=== PATIENT | male | born 1985 | race African-American/Black ===

== ENCOUNTER 2017-02-15 14:33 | Inpatient (IN) | payer OTHER ==
[2017-02-15 18:00] VITALS: BMI 22.1
--- NOTE | 2017-02-15 19:36 | HP ---
COWS - Scale Resting Pulse: 1= [place] 81-100 Sweatin= Chills/Flushing Restless Observation: 1= Difficult to Sit Still Pupil Size: 0= Normal to Room Light Bone or Joint Aches: 2= Severe Diffuse Aches Runny Nose/ Eye Tearin= Runny Nose/Eyes GI Upset > 30mins: 1= Stomach Cramp Tremor Observation: 2= Slight Tremor Visible Yawning Observation: 1= 1-2x During Session Anxiety or Irritability: 2=Irritable/Anxious Goose Flesh Skin: 0=Smooth Skin COWS Score: 13 CIWA Score - CIWA Score Nausea/Vomitin-No Nausea/No Vomiting Muscle Tremors: 4-Moderate,w/Arms Extend Anxiety: 4-Mod. Anxious/Guarded Agitation: 4-Moderately Restless Paroxysmal Sweats: 1-Minimal Palms Moist Orientation: 1-Uncertain about Date Tacttile Disturbances: 0-None Auditory Disturbances: 0-None Visual Disturbances: 0-None Headache: 0-None Present CIWA-Ar Total Score: 14 Admission ROS S - HPI Chief Complaint: withdrawal sx Allergies/Adverse Reactions: Allergies Allergy/AdvReac Type Severity Reaction Status Date / Time No Known Allergies Allergy Verified 02/15/17 19:32 History of Present Illness: 32 years old male with long history of alcohol opiate klonopin nicotine dependence has history of blood clots removed 2010, both legs is admitted to detox Exam Limitations: No Limitations - Ebola screening Have you traveled outside of the country in the last 21 days: No (N) Have you had contact with anyone from an Ebola affected area: No Have you been sick,other than usual withdrawal symptoms: No Do you have a fever: No - Review of Systems Constitutional: Loss of Appetite, Unintentional Wgt. Loss EENT: reports: No Symptoms Reported Respiratory: reports: No Symptoms reported Cardiac: reports: No Symptoms Reported GI: reports: Poor Appetite, Poor Fluid Intake, Abdominal cramping : reports: No Symptoms Reported Musculoskeletal: reports: Back Pain, Joint Pain, Muscle Pain, Neck Pain Integumentary: reports: No Symptoms Reported Neuro: reports: Tremors Endocrine: reports: No Symptoms Reported Hematology: reports: No Symptoms Reported Psychiatric: reports: Judgement Intact, Mood/Affect Appropiate Other Systems: Reviewed and Negative Patient History - Patient Medical History Hx Anemia: No Hx Asthma: No Hx Chronic Obstructive Pulmonary Disease (COPD): No Hx Cancer: No Hx Cardiac Disorders: No Hx Congestive Heart Failure: No Hx Hypertension: No Hx Hypercholesterolemia: No Hx Pacemaker: No HX Cerebrovascular Accident: No Hx Seizures: No Hx Dementia: No Hx Diabetes: No Hx Gastrointestinal Disorders: No Hx Liver Disease: No Hx Genitourinary Disorders: No Hx Sexually Transmitted Disorders: No Hx Renal Disease (ESRD): No Hx Thyroid Disease: No Hx Human Immunodeficiency Virus (HIV): No Hx Hepatitis C: No Hx Depression: No Hx Suicide Attempt: No Hx Bipolar Disorder: No Hx Schizophrenia: No - Patient Surgical History Past Surgical History: Yes Hx Neurologic Surgery: No Hx Cataract Extraction: No Hx Cardiac Surgery: No Hx Lung Surgery: No Hx Breast Surgery: No Hx Breast Biopsy: No Hx Abdominal Surgery: No Hx Appendectomy: No Hx Cholecystectomy: No Hx Genitourinary Surgery: No Hx Orthopedic Surgery: Yes (blood clots removed both legs 2010) Anesthesia Reaction: No - PPD History Previous Implant?: Yes Documented Results: Negative w/o proof Implanted On Prior [facility] Admission?: No PPD to be Administered?: Yes - Smoking Cessation Smoking history: Current every day smoker Have you smoked in the past 12 months: Yes Aproximately how many cigarettes per day: 4 Cigars Per Day: 0 Hx Chewing Tobacco Use: No Initiated information on smoking cessation: Yes 'Breaking Loose' booklet given: 02/15/17 - Substance & Tx. History Hx Alcohol Use: Yes Hx Substance Use: Yes Substance Use Type: Alcohol, Cocaine, Opiates, Tranquilizers Hx Substance Use Treatment: Yes (2015) - Substances Abused Alcohol Route: Oral Benzodiazepine (Klonopin) Route: Oral Heroin Route: Inhalation Frequency: Daily Amount used: 10 bags Age of first use: 30 Date of Last Use: 02/15/17 Crack Route: Smoking Frequency: Daily Amount used: $40-50 Age of first use: 31 Date of Last Use: 02/15/17 Alcohol-beer/vodka Route: Oral Frequency: Daily Amount used: 2 (24 oz.)/1 pt. Age of first use: 15 Date of Last Use: 02/15/17 Klonopin Route: Oral Frequency: 3-6 times per week Amount used: 2 tabs. Age of first use: 32 Date of Last Use: 02/15/17 Librium Route: Oral Frequency: 1-3 times last 30 days Amount used: 2 caps. Age of first use: 32 Date of Last Use: 02/15/17 Family Disease History - Family Disease History Family History: Denies Admission Physical Exam [facility] - Vital Signs Vital Signs: Vital Signs - 24 hr 02/15/17 17:57 Temperature 97.8 F Pulse Rate 90 Respiratory 18 Rate Blood Pressure 90/60 - Physical General Appearance: Yes: Appropriately Dressed, Mild Distress, Thin, Tremorous, Irritable, Sweating, Anxious HEENTM: Yes: Hearing grossly Normal, Normal ENT Inspection, Normocephalic, Normal Voice Respiratory: Yes: Chest Non-Tender, No Respiratory Distress, No Accessory Muscle Use, Hyperresonant Neck: Yes: Supple, Trachea in good position Breast: Yes: Breasts Symetrical Cardiology: Yes: Regular Rhythm, S1, S2, Tachycardia Abdominal: Yes: Non Tender, Soft, Decreased BS Genitourinary: Yes: Within Normal Limits Back: Yes: Normal Inspection Musculoskeletal: Yes: full range of Motion, Gait Steady, Back pain, Muscle Pain Extremities: Yes: Normal Inspection (old iv opiate magdaleno both arms), Normal Range of Motion, Non-Tender, Tremors Neurological: Yes: Alert, Motor Strength 5/5, Normal Mood/Affect, Normal Response Integumentary: Yes: Warm Lymphatic: Yes: Within Normal Limits - Diagnostic (1) Alcohol dependence with uncomplicated withdrawal Current Visit: Yes Status: Acute (2) Opioid dependence with withdrawal Current Visit: Yes Status: Acute (3) Nicotine dependence Current Visit: Yes Status: Acute Qualifiers: Nicotine product type: cigarettes Substance use status: in withdrawal Qualified Code(s): F17.213 - Nicotine dependence, cigarettes, with withdrawal (4) Weight loss Current Visit: Yes Status: Acute (5) Wheezing on expiration Current Visit: Yes Status: Chronic (6) Wheezing on auscultation Current Visit: Yes Status: Chronic (7) Sedative, hypnotic or anxiolytic dependence with withdrawal, uncomplicated Current Visit: Yes Status: Acute (8) Cocaine dependence, uncomplicated Current Visit: Yes Status: Chronic Cleared for Admission [facility] - Detox or Rehab [facility] Level of Care: Medically Managed Detox Regimen/Protocol: Methadone/Librium [facility] Breath Alcohol Content Breath Alcohol Content: 0 Urine Drug Screen - Control Is Test Valid: Yes - Results Drug Screen Negative: No Urine Drug Screen Results: HILDA-Cocaine, OPI-Opiates, BZO-Benzodiazepines, MTD- Methadone, TCA-Tricyclic Antidepress
[2017-02-15] MEDS ORDERED: LOPERAMIDE HCL 2 MG CAPSULE PO PRN (19:43)
[2017-02-15] MEDS ORDERED: MENTHOL/PHENOL 1 EACH UD MM PRN (19:43)
[2017-02-15] MEDS ORDERED: MAGNESIUM CITRATE 300 ML BOTTLE PO PRN (19:43)
[2017-02-15] MEDS ORDERED: P-EPHED 60MG/TRIPROLIDI 2.5MG TABLET PO PRN (19:43)
[2017-02-15] MEDS ORDERED: IBUPROFEN 400 MG TABLET (FP) PO PRN (19:43)
[2017-02-15] MEDS ORDERED: METHADONE HCL 10 MG TABLET (FOR DETOX USE ONLY) PO ONE ×2 (19:43→23:00)
[2017-02-15] MEDS ORDERED: MAGNESIUM HYDROX 2400MG/30ML ORAL SUSPENSION 30 ML CUP PO PRN (19:43)
[2017-02-15] MEDS ORDERED: ACETAMINOPHEN 325 MG TABLET (FP) PO PRN (19:43)
[2017-02-15] MEDS ORDERED: guaiFENesin/D-METHORPHAN HB 10 ML UNIT-DOSE CUPS PO PRN (19:43)
[2017-02-15] MEDS ORDERED: MAG HYDROX/AL HYDROX/SIMETH 30 ML UNIT-DOSE CUP PO PRN (19:43)
[2017-02-15] MEDS: THIAMINE HCL 100 MG TABLET (FP) PO SCH (21:41)
[2017-02-15] MEDS: chlordiazePOXIDE HCL 25 MG CAPSULE PO SCH (22:36)
[2017-02-16] MEDS: chlordiazePOXIDE HCL 25 MG CAPSULE PO SCH ×4 (05:50→22:29)
[2017-02-16] MEDS ORDERED: METHADONE HCL 10 MG TABLET (FOR DETOX USE ONLY) PO SCH (10:00)
[2017-02-16 10:25] LABS: MCH 27.5 pg (25.7-33.7); MCHC 31.9 g/dl (32.0-35.9); MEAN PLT VOLUME 9.3 fl (7.5-11.1); PLATELET COUNT 197 K/MM3 (134-434); RDW 14.3 % (11.9-15.9); WHITE BLOOD COUNT 4.5 K/mm3 (4.0-10.0)
[2017-02-16] MEDS: PRENATAL VITAMINS W/ FOLIC ACID TABLET (FP) PO SCH (10:42)
[2017-02-16] MEDS: NICOTINE 14 MG/24 HOURS TOPICAL PATCH TD SCH (10:43)
[2017-02-16 11:08] LABS: ALBUMIN 3.4 g/dl (3.4-5.0); ALK PHOS 40 U/L (45-117); ANION GAP 9 (8-16); BILIRUBIN,TOTAL 0.4 mg/dL (0.2-1.0); CALCIUM 8.2 mg/dL (8.5-10.1); CO2 25 mmol/L (21-32); CREATININE 0.9 mg/dL (0.7-1.3); GLUCOSE,RANDOM 79 mg/dL (74-106); SGOT/AST 9 U/L (15-37); SGPT/ALT 24 U/L (12-78); TOT PROT 5.8 g/dl (6.4-8.2)
--- NOTE | 2017-02-16 12:37 | EKG ---
Test Reason : Blood Pressure : / mmHG Vent. Rate : 075 BPM Atrial Rate : 075 BPM P-R Int : 146 ms QRS Dur : 082 ms QT Int : 386 ms P-R-T Axes : 068 065 025 degrees QTc Int : 431 ms NORMAL SINUS RHYTHM NONSPECIFIC ST ABNORMALITY ABNORMAL ECG NO PREVIOUS ECGS AVAILABLE Confirmed by WOJCIECH ELKINS MD ([id number]) on 02/16/2017 12:37:38 PM Referred By: Confirmed By:WOJCIECH ELKINS MD
--- NOTE | 2017-02-16 19:32 | PN ---
[facility] CIWA - CIWA Score Nausea/Vomitin-No Nausea/No Vomiting Muscle Tremors: 4-Moderate,w/Arms Extend Anxiety: 3 Agitation: 3 Paroxysmal Sweats: 3 Orientation: 0-Oriented Tacttile Disturbances: 0-None Auditory Disturbances: 0-None Visual Disturbances: 3-Moderate Sensitivity Headache: 0-None Present CIWA-Ar Total Score: 16 [facility] COWS - Scale Resting Pulse: 0= [place] 80 or Below Sweatin= Chills/Flushing Restless Observation: 1= Difficult to Sit Still Pupil Size: 0= Normal to Room Light Bone or Joint Aches: 0= None Runny Nose/ Eye Tearin= None GI Upset > 30mins: 1= Stomach Cramp Tremor Observation of Outstretched Hands: 2= Slight Tremor Visible Yawning Observation: 1= 1-2x During Session Anxiety or Irritability: 2=Irritable/Anxious Goose Flesh Skin: 3=Piloerection COWS Score: 11 [facility] Progress Note (SOAP) Subjective: Stomach Cramping, Fatigue, Tremors, Sweating. Objective: PT. A & O X 3, OBSERVED AMBULATING ON UNIT. NO ACUTE DISTRESS. 02/16/17 19:30 Vital Signs Temperature 97.0 F L 02/16/17 17:14 Pulse Rate 74 02/16/17 17:14 Respiratory Rate 18 02/16/17 17:14 Blood Pressure 110/74 02/16/17 17:14 O2 Sat by Pulse Oximetry (%) Laboratory Tests 02/16/17 02/16/17 02/16/17 04:00 04:00 04:00 WBC 4.5 RBC 4.56 Hgb 12.5 Hct 39.2 MCV 86.0 MCH 27.5 MCHC 31.9 L RDW 14.3 Plt Count 197 MPV 9.3 Sodium 140 Potassium 4.3 Chloride 106 Carbon Dioxide 25 Anion Gap 9 BUN 13 Creatinine 0.9 Creat Clearance w eGFR > 60 Random Glucose 79 Calcium 8.2 L Total Bilirubin 0.4 AST 9 L ALT 24 Alkaline Phosphatase 40 L Total Protein 5.8 L Albumin 3.4 RPR Titer Nonreactive LABS NOTED. UA RESULTS PENDING. 02/16/17 19:31 Assessment: 02/16/17 19:31 WITHDRAWAL SYMPTOMS. Plan: CONTINUE DETOX. INCREASE DAILY PO FLUID INTAKE.
[2017-02-16] MEDS: THIAMINE HCL 100 MG TABLET (FP) PO SCH (22:29)
[2017-02-16] MEDS: NICOTINE POLACRILEX 2 MG GUM BC PRN (23:26)
[2017-02-17] MEDS: chlordiazePOXIDE HCL 25 MG CAPSULE PO SCH ×3 (06:05→17:03)
[2017-02-17] MEDS: NICOTINE 14 MG/24 HOURS TOPICAL PATCH TD SCH (10:54)
[2017-02-17] MEDS: METHADONE HCL 5 MG TABLET (FOR DETOX USE ONLY) PO SCH (10:54)
[2017-02-17] MEDS: PRENATAL VITAMINS W/ FOLIC ACID TABLET (FP) PO SCH (10:54)
[2017-02-17] MEDS: NICOTINE POLACRILEX 2 MG GUM BC PRN ×2 (10:55→13:55)
[2017-02-17] MEDS: chlordiazePOXIDE HCL 25 MG CAPSULE PO PRN (13:45)
--- NOTE | 2017-02-17 17:24 | PN ---
[facility] CIWA - CIWA Score Nausea/Vomitin-No Nausea/No Vomiting Muscle Tremors: 4-Moderate,w/Arms Extend Anxiety: 3 Agitation: 3 Paroxysmal Sweats: No Perspiration Orientation: 0-Oriented Tacttile Disturbances: 0-None Auditory Disturbances: 2-Mild Harshness/Frighten Visual Disturbances: 3-Moderate Sensitivity Headache: 0-None Present CIWA-Ar Total Score: 15 S COWS - Scale Resting Pulse: 1= [place] 81-100 Sweatin= Chills/Flushing Restless Observation: 1= Difficult to Sit Still Pupil Size: 0= Normal to Room Light Bone or Joint Aches: 2= Severe Diffuse Aches Runny Nose/ Eye Tearin= None GI Upset > 30mins: 0= None Tremor Observation of Outstretched Hands: 2= Slight Tremor Visible Yawning Observation: 1= 1-2x During Session Anxiety or Irritability: 2=Irritable/Anxious Goose Flesh Skin: 3=Piloerection COWS Score: 13 S Progress Note (SOAP) Subjective: Interrupted Sleep, Fatigue, Tremors, Anxious. Objective: PT. A & O X 3, OBSERVED AMBULATING ON UNIT. NO ACUTE DISTRESS. 02/17/17 17:23 Vital Signs Temperature 97.0 F L 02/17/17 13:52 Pulse Rate 83 02/17/17 13:52 Respiratory Rate 18 02/17/17 13:52 Blood Pressure 113/77 02/17/17 13:52 O2 Sat by Pulse Oximetry (%) Laboratory Tests 02/16/17 02/16/17 02/16/17 04:00 04:00 04:00 WBC 4.5 RBC 4.56 Hgb 12.5 Hct 39.2 MCV 86.0 MCH 27.5 MCHC 31.9 L RDW 14.3 Plt Count 197 MPV 9.3 Sodium 140 Potassium 4.3 Chloride 106 Carbon Dioxide 25 Anion Gap 9 BUN 13 Creatinine 0.9 Creat Clearance w eGFR > 60 Random Glucose 79 Calcium 8.2 L Total Bilirubin 0.4 AST 9 L ALT 24 Alkaline Phosphatase 40 L Total Protein 5.8 L Albumin 3.4 RPR Titer Nonreactive LABS NOTED. Assessment: 02/17/17 17:24 WITHDRAWAL SYMPTOMS. Plan: CONTINUE DETOX.
[2017-02-17] MEDS: THIAMINE HCL 100 MG TABLET (FP) PO SCH (22:30)
[2017-02-17] MEDS: chlordiazePOXIDE 5 MG CAPSULE PO SCH (22:32)
[2017-02-18] MEDS ORDERED: diphenhydrAMINE HCL 25 MG CAPSULE (FP) PO ONE (00:35)
[2017-02-18] MEDS: chlordiazePOXIDE HCL 25 MG CAPSULE PO PRN (00:36)
[2017-02-18] MEDS: diphenhydrAMINE HCL 50 MG CAPSULE PO PRN ×2 (00:38→22:36)
[2017-02-18] MEDS: chlordiazePOXIDE 5 MG CAPSULE PO SCH ×3 (05:04→17:41)
[2017-02-18] MEDS: METHADONE HCL 5 MG TABLET (FOR DETOX USE ONLY) PO SCH (11:11)
[2017-02-18] MEDS: PRENATAL VITAMINS W/ FOLIC ACID TABLET (FP) PO SCH (11:11)
[2017-02-18] MEDS: NICOTINE 14 MG/24 HOURS TOPICAL PATCH TD SCH (11:11)
[2017-02-18 14:50] LABS: URINE APPEARANCE CLEAR; URINE BILIRUBIN NEGATIVE (NEGATIVE); URINE BLOOD NEGATIVE (NEGATIVE); URINE COLOR STRAW; URINE GLUCOSE (UA) NEGATIVE (NEGATIVE); URINE KETONE NEGATIVE (NEGATIVE); URINE NITRITE NEGATIVE (NEGATIVE); URINE PROTEIN NEGATIVE (NEGATIVE); URINE UROBILINOGEN NEGATIVE mg/dL (0.2-1.0)
--- NOTE | 2017-02-18 15:28 | PN ---
[facility] Progress Note (SOAP) Subjective: Interrupted Sleep, Fatigue, Anxious. Objective: PT. A & O X 3, OBSERVED AMBULATING ON UNIT. NO ACUTE DISTRESS. 02/18/17 15:26 Vital Signs Temperature 98.3 F 02/18/17 14:30 Pulse Rate 83 02/18/17 14:30 Respiratory Rate 18 02/18/17 14:30 Blood Pressure 121/76 02/18/17 14:30 O2 Sat by Pulse Oximetry (%) Laboratory Tests 02/16/17 02/16/17 02/16/17 04:00 04:00 04:00 WBC 4.5 RBC 4.56 Hgb 12.5 Hct 39.2 MCV 86.0 MCH 27.5 MCHC 31.9 L RDW 14.3 Plt Count 197 MPV 9.3 Sodium 140 Potassium 4.3 Chloride 106 Carbon Dioxide 25 Anion Gap 9 BUN 13 Creatinine 0.9 Creat Clearance w eGFR > 60 Random Glucose 79 Calcium 8.2 L Total Bilirubin 0.4 AST 9 L ALT 24 Alkaline Phosphatase 40 L Total Protein 5.8 L Albumin 3.4 Urine Color Urine Appearance Urine pH Ur Specific [place] Urine Protein Urine Glucose (UA) Urine Ketones Urine Blood Urine Nitrite Urine Bilirubin Urine Urobilinogen RPR Titer Nonreactive 02/18/17 09:26 WBC RBC Hgb Hct MCV MCH MCHC RDW Plt Count MPV Sodium Potassium Chloride Carbon Dioxide Anion Gap BUN Creatinine Creat Clearance w eGFR Random Glucose Calcium Total Bilirubin AST ALT Alkaline Phosphatase Total Protein Albumin Urine Color Straw Urine Appearance Clear Urine pH 5.0 Ur Specific [place] 1.010 Urine Protein Negative Urine Glucose (UA) Negative Urine Ketones Negative Urine Blood Negative Urine Nitrite Negative Urine Bilirubin Negative Urine Urobilinogen Negative RPR Titer LABS NOTED. Assessment: 02/18/17 15:26 WITHDRAWAL SYMPTOMS. Plan: CONTINUE DETOX. INCREASE DAILY PO FLUID INTAKE.
[2017-02-18 17:44] LABS: URINE LEUK ESTERASE Negative (NEGATIVE)
[2017-02-18] MEDS: THIAMINE HCL 100 MG TABLET (FP) PO SCH (22:35)
[2017-02-18] MEDS: chlordiazePOXIDE HCL 10 MG CAPSULE PO SCH (22:35)
[2017-02-19] MEDS: chlordiazePOXIDE HCL 10 MG CAPSULE PO SCH ×2 (06:22→10:08)
[2017-02-19 09:59] VITALS: BP 123/83; PULSE 90; TEMP 96.6
[2017-02-19] MEDS ORDERED: METHADONE HCL 10 MG TABLET (FOR DETOX USE ONLY) PO SCH (10:00)
[2017-02-19] MEDS: PRENATAL VITAMINS W/ FOLIC ACID TABLET (FP) PO SCH (10:08)
[2017-02-19] MEDS: NICOTINE 14 MG/24 HOURS TOPICAL PATCH TD SCH (10:08)
--- NOTE | 2017-02-19 17:04 | DS ---
[facility] Detox Discharge Summary Admission Date: 02/15/17 Discharge Date: 02/19/17 - History Present History: Alcohol Dependence, Cocaine Dependence, Opioid Dependence, Sedative Dependence Pertinent Past History: Denies - Physical Exam Results Vital Signs: Vital Signs Temperature 96.6 F L 02/19/17 09:58 Pulse Rate 90 02/19/17 09:58 Respiratory Rate 18 02/19/17 09:58 Blood Pressure 123/83 02/19/17 09:58 O2 Sat by Pulse Oximetry (%) Pertinent Admission Physical Exam Findings: Withdrawal symptoms Laboratory Tests 02/16/17 02/16/17 02/16/17 04:00 04:00 04:00 WBC 4.5 RBC 4.56 Hgb 12.5 Hct 39.2 MCV 86.0 MCH 27.5 MCHC 31.9 L RDW 14.3 Plt Count 197 MPV 9.3 Sodium 140 Potassium 4.3 Chloride 106 Carbon Dioxide 25 Anion Gap 9 BUN 13 Creatinine 0.9 Creat Clearance w eGFR > 60 Random Glucose 79 Calcium 8.2 L Total Bilirubin 0.4 AST 9 L ALT 24 Alkaline Phosphatase 40 L Total Protein 5.8 L Albumin 3.4 Urine Color Urine Appearance Urine pH Ur Specific [place] Urine Protein Urine Glucose (UA) Urine Ketones Urine Blood Urine Nitrite Urine Bilirubin Urine Urobilinogen Ur Leukocyte Esterase RPR Titer Nonreactive 02/18/17 09:26 WBC RBC Hgb Hct MCV MCH MCHC RDW Plt Count MPV Sodium Potassium Chloride Carbon Dioxide Anion Gap BUN Creatinine Creat Clearance w eGFR Random Glucose Calcium Total Bilirubin AST ALT Alkaline Phosphatase Total Protein Albumin Urine Color Straw Urine Appearance Clear Urine pH 5.0 Ur Specific [place] 1.010 Urine Protein Negative Urine Glucose (UA) Negative Urine Ketones Negative Urine Blood Negative Urine Nitrite Negative Urine Bilirubin Negative Urine Urobilinogen Negative Ur Leukocyte Esterase Negative RPR Titer Labs noted - Medication Discharge Medications: Ambulatory Orders NK [No Known Home Medication] 02/15/17 - Diagnosis (1) Alcohol dependence with uncomplicated withdrawal Status: Acute (2) Nicotine dependence Status: Chronic Qualifiers: Nicotine product type: cigarettes Substance use status: in withdrawal Qualified Code(s): F17.213 - Nicotine dependence, cigarettes, with withdrawal (3) Opioid dependence with withdrawal Status: Acute (4) Sedative, hypnotic or anxiolytic dependence with withdrawal, uncomplicated Status: Acute (5) Cocaine dependence, uncomplicated Status: Chronic - AMA Did Patient Leave Against Medical Advice: Yes (F/U with PCP within 3 days)
[2017-02-20] MEDS ORDERED: METHADONE HCL 5 MG TABLET (FOR DETOX USE ONLY) PO SCH (06:00)
== END 2017-02-19 14:38 | disposition left against medical advice (07) | DRG 894 ==
LOC: YASAS 14:33 → Y3N 19:57
PROVIDERS: ADMIT Internal Medicine; ATTEND Internal Medicine
PROC: HZ2ZZZZ Detoxification Services for Substance Abuse Treatment (ICD-10-PCS; principal; 2017-02-15)
DX: F11.23 Opioid dependence with withdrawal (principal); F19.20 Other psychoactive substance dependence, uncomplicated; F13.230 Sedative, hypnotic or anxiolytic dependence with withdrawal, uncomplicated; F10.230 Alcohol dependence with withdrawal, uncomplicated; F17.213 Nicotine dependence, cigarettes, with withdrawal; R06.2 Wheezing; R63.4 Abnormal weight loss; Z68.22 Body mass index [BMI] 22.0-22.9, adult; Z86.718 Personal history of other venous thrombosis and embolism
CPT/HCPCS: 36415; 80053; 81003; 85027; 86593; 93005; 93010